=== PATIENT | female | born 1975 | race Caucasian/White ===

== ENCOUNTER 2016-06-08 20:02 | Emergency (ER) | payer BC ==
[2016-06-08] MEDS ORDERED: ONDANSETRON HCL INJ/PF 4 MG/2 ML SDV IV ONE (20:53)
[2016-06-08] MEDS ORDERED: NORMAL SALINE 1000 ML 1,000 ML IV PRN (22:13)
[2016-06-08 22:22] LABS: HEMATOCRIT 42.6 % (36.0-47.0); HGB HCT DIFFERENCE -0.6; MEAN CORPUSCULAR HGB CONC 32.9 g/dL (32.0-36.0); MEAN CORPUSCULAR VOLUME 88 fl (80-97); RED BLOOD COUNT 4.85 10^6/uL (3.72-5.28); RED CELL DISTRIBUTION WIDTH 12.8 % (11.5-14.0); WHITE BLOOD COUNT 11.8 10^3/uL (4.0-10.5)
[2016-06-08 22:33] LABS: ALANINE AMINOTRANSFERASE 21 U/L (9-52); ALBUMIN 4.3 g/dL (3.5-5.0); ALKALINE PHOSPHATASE 95 U/L (38-126); ANION GAP 13 (5-19); ASPARTATE AMINO TRANSFERASE 26 U/L (14-36); BILIRUBIN,DIRECT 0.1 mg/dL (0.0-0.4); BILIRUBIN,TOTAL 0.7 mg/dL (0.2-1.3); BLOOD UREA NITROGEN 17 mg/dL (7-20); CALCIUM 9.4 mg/dL (8.4-10.2); CARBON DIOXIDE 23 mmol/L (22-30); CHLORIDE 106 mmol/L (98-107); CREATININE RESULT 0.82 mg/dL (0.52-1.25); GLUCOSE 131 mg/dL (75-110); LIPASE 173.8 U/L (23-300); SODIUM 141.7 mmol/L (137-145); TOTAL PROTEIN 7.5 g/dL (6.3-8.2)
--- NOTE | 2016-06-08 22:37 | ER Document Report ---
ED General - General Chief Complaint: Nausea/Vomiting/Diarrhea Stated Complaint: VOMITING Time seen by provider: 22:34 Mode of Arrival: Ambulatory Information source: Patient Notes: This is a 40-year-old female with no significant medical problems who presents to the emergency room with nausea and vomiting all day. Patient states she went to bed feeling fine and awoke 9 AM with nausea and vomiting. Patient denies abdominal pain. Patient denies vaginal bleeding. Patient denies fever. Last normal menstrual period 2 weeks ago. Medicines: control pills No known drug allergies Past surgical history: None Past medical history: None TRAVEL OUTSIDE OF THE [place] IN LAST 30 DAYS: No - HPI Onset: This morning Onset/Duration: Sudden Quality of pain: Achy Severity: None Pain Level: Denies Associated symptoms: Nausea, Vomiting. denies: Chest pain, Diarrhea, Fever, Shortness of breath Exacerbated by: Denies Relieved by: Denies Similar symptoms previously: No Recently seen / treated by doctor: No - Related Data Allergies/Adverse Reactions: No Known Allergies Allergy (Verified 06/08/16 20:12) Past Medical History - General Information source: Patient - Social History Smoking Status: Never Smoker Cigarette use (# per day): No Chew tobacco use (# tins/day): No Frequency of alcohol use: None Drug Abuse: None Lives with: Family Family History: None Patient has suicidal ideation: No Patient has homicidal ideation: No - Past Medical History Cardiac Medical History: Reports: None Pulmonary Medical History: Reports: None EENT Medical History: Reports: None Neurological Medical History: Reports: None Endocrine Medical History: Reports: None Renal/ Medical History: Denies: Hx Peritoneal Dialysis Malignancy Medical History: Reports: None GI Medical History: Reports: None Musculoskeltal Medical History: Reports None Skin Medical History: Reports None Psychiatric Medical History: Reports: None Infectious Medical History: Reports: None Surgical Hx: Negative Review of Systems - Review of Systems Constitutional: denies: Chills, Fever EENT: No symptoms reported Cardiovascular: No symptoms reported Respiratory: No symptoms reported Gastrointestinal: See HPI Genitourinary: No symptoms reported Female Genitourinary: No symptoms reported Musculoskeletal: No symptoms reported Skin: No symptoms reported Hematologic/Lymphatic: No symptoms reported Neurological/Psychological: No symptoms reported Physical Exam - Vital signs Vitals: Temp Pulse Resp BP Pulse Ox 98.1 F 91 20 110/68 100 06/08/16 20:12 06/08/16 20:12 06/08/16 20:12 06/08/16 20:12 06/08/16 20:12 Notes: Physical exam: GENERAL: 80-year-old female, alert and oriented 3, no acute distress HEAD: Atraumatic, normocephalic. EYES: Pupils equal round and reactive to light, extraocular movements intact, sclera anicteric, conjunctiva are normal. ENT: TMs normal, nares patent, oropharynx clear without exudates. Moist mucous membranes. NECK: Normal range of motion, supple without lymphadenopathy or JVD. LUNGS: Breath sounds clear to auscultation bilaterally and equal. No wheezes rales or rhonchi. HEART: Regular rate and rhythm without murmurs, rubs or gallops. ABDOMEN: Soft, hypoactive bowel sounds. No tenderness to palpation. No guarding, no rebound. No masses appreciated. EXTREMITIES: Normal range of motion, no pitting or edema. No clubbing or cyanosis. NEUROLOGICAL: Cranial nerves II through XII grossly intact. Normal speech, normal gait. PSYCH: Normal mood, normal affect. SKIN: Warm, Dry, normal turgor, no rashes or lesions noted. Course - Re-evaluation Re-evalutation: 06/09/16 00:24 Note: On reassessment, the patient does state she feels better. Her color does look better after the IV fluids. Repeat abdominal exam: She has better bowel sounds in earlier exam. The patient's abdomen is still soft and is not tender. I've had a long discussion with the patient and advised her to return if she develops any abdominal pain. The patient reiterates that she's never had any abdominal pain today. She did have an elevation in her white count which might be from the multiple episodes of vomiting alone. I let the patient and her know that I am working tomorrow and that they can return for reassessment if she is not feeling any better. I've given the patient a copy of today's labs and I have advised her to follow-up with the primary care physician on Friday. I've given her a work statement. - Vital Signs Vital signs: Temp Pulse Resp BP Pulse Ox 98.1 F 91 20 110/68 100 06/08/16 20:12 06/08/16 20:12 06/08/16 20:12 06/08/16 20:12 06/08/16 20:12 - Laboratory Result Diagrams: 06/08/16 22:00 06/08/16 22:00 Laboratory results interpreted by me: 06/08/16 06/08/16 06/08/16 22:00 22:00 22:21 WBC 11.8 H Seg Neuts % (Manual) 79 H Band Neutrophils % 11 H Lymphocytes % (Manual) 5 L Abs Neuts (Manual) 10.6 H Glucose 131 H Urine Protein 30 H Urine Ketones TRACE H Ur Leukocyte Esterase TRACE H Discharge - Discharge Clinical Impression: vomiting with nausea Condition: Stable Disposition: HOME, SELF-CARE Instructions: Intravenous (IV) Fluids ([facility]), Vomiting ([facility]) Additional Instructions: Recommendations: Rest, take Zofran as prescribed for nausea. Drink small amounts of water at first and gradually advance diet. Return to the emergency room if you develop any pain (particularly pain moving to the right lower side which is where the appendix is), or if you're unable to tolerate fluids, or if you have any concerns he getting worse. Follow-up with your primary care doctor: Bring a copy of today's lab work with you. Prescriptions: Promethazine HCl [Phenergan 25 mg Tablet] 25 mg PO Q6H PRN #7 tablet PRN Reason: Forms: Return to Work Referrals: ASHELY OLIVEROS MD [Primary Care Provider] - 06/10/16
[2016-06-08 22:44] LABS: BASOPHILS % (MANUAL) 1 % (0-2); EOSINOPHILS % (MANUAL) 0 % (0-6); LYMPHOCYTES % (MANUAL) 5 % (13-45); TOTAL CELLS COUNTED 100
[2016-06-08 22:46] LABS: OVALOCYTES SLIGHT; POIKILOCYTOSIS SLIGHT
[2016-06-08 22:47] LABS: BAND NEUTROPHILS % (MANUAL) 11 % (3-5)
[2016-06-08 22:56] LABS: APPEARANCE,URINE CLOUDY; BILIRUBIN,URINE NEGATIVE (NEGATIVE); GLUCOSE, URINE NEGATIVE (NEGATIVE); KETONES,URINE TRACE mg/dL (NEGATIVE); LEUKOCYTE ESTERASE,URINE TRACE (NEGATIVE); NITRITE,URINE NEGATIVE (NEGATIVE); PROTEIN,URINE 30 mg/dL (NEGATIVE); URINE SPECIFIC GRAVITY 1.031; UROBILINOGEN,URINE NEGATIVE mg/dL (<2.0)
[2016-06-09] MEDS ORDERED: ONDANSETRON ODT 4 MG TAB (6 TAB/DSPK) PO PRN (00:20)
[2016-06-09 01:07] VITALS: BP 94/49
[2016-06-10 17:51] LABS: PATH REVIEW PATHOLOGIST REVIEWED
== END 2016-06-09 00:55 | disposition home or self-care (01) ==
LOC: ER 20:02
DX: R11.2 Nausea with vomiting, unspecified (principal); R19.7 Diarrhea, unspecified
CPT/HCPCS: 99284; 96360; 96361; 36415; 83690; 85025; 81025; 80053; 81001; J7030